=== PATIENT | female | born 1960 | race Caucasian/White ===

== ENCOUNTER 2018-07-30 14:30 | Emergency (ER) | payer MEDICAID, OTHER ==
[~2018-07-30] VITALS: Ht 157.5 cm; Wt 48.0 kg
[~2018-07-30 14:30] MED LIST: CANE-100; HYDR-4383 PO; NAPR-1154 PO
[2018-07-30 15:09] VITALS: BP 153/87
[2018-07-30] MEDS ORDERED: CEPH-572 PO (16:19)
== END 2018-07-30 20:51 | disposition home or self-care (01) ==
LOC: ER 14:30
DX: L03.012 Cellulitis of left finger (principal); L03.011 Cellulitis of right finger; R23.8 Other skin changes; K21.9 Gastro-esophageal reflux disease without esophagitis; Z79.899 Other long term (current) drug therapy
CPT/HCPCS: 99283

== ENCOUNTER 2019-10-01 10:54 | Emergency (ER) | payer MEDICAID, OTHER ==
[~2019-10-01] VITALS: Ht 157.5 cm; Wt 56.1 kg
[2019-10-01 11:08] VITALS: BP 171/94
[2019-10-01 12:35] LABS: CLARITY,URINE CLEAR (Clear); COLOR,URINE YELLOW (Yellow); GLUCOSE, URINE NEGATIVE (Neg); KETONES,URINE NEGATIVE (Neg); LEUKOCYTE ESTERASE ,URINE TRACE (Neg); NITRITES, URINE NEGATIVE (Neg); OCCULT BLOOD,URINE SMALL (Neg); PROTEIN,URINE NEGATIVE (Neg)
[2019-10-01 12:36] LABS: UA COLLECTION TYPE CLN CATCH MIDSTREAM
[2019-10-01 12:47] LABS: SQUAMOUS EPITHELIAL CELL,UR MODERATE /LPF (FEW)
[2019-10-01 12:49] LABS: BACTERIA,URINE 2+ /HPF (Neg); RBC,URINE 0-2 /HPF (0-2); WBC CLUMPS,URINE FEW /HPF (NEGATIVE)
[2019-10-01 12:59] LABS: URINE AMPHETAMINE SCREEN POSITIVE (Neg); URINE BARBITUATE SCREEN NEGATIVE (Neg); URINE BENZODIAZEPINES SCREEN NEGATIVE (Neg); URINE CANNABINOID SCREEN POSITIVE (Neg); URINE COCAINE SCREEN NEGATIVE (Neg); URINE METHADONE SCREEN NEGATIVE (Neg); URINE OPIATE SCREEN NEGATIVE (Neg); URINE PHENCYCLIDINE SCREEN NEGATIVE (Neg)
[2019-10-01] MEDS ORDERED: CEPH250T PO (13:27)
== END 2019-10-01 13:31 | disposition home or self-care (01) ==
LOC: ER 10:55
DX: N39.0 Urinary tract infection, site not specified (principal); F15.10 Other stimulant abuse, uncomplicated; K21.9 Gastro-esophageal reflux disease without esophagitis; Z59.0 Homelessness
CPT/HCPCS: 36415; 80305; 80320; 81001; 99283

== ENCOUNTER 2022-12-12 17:01 | Emergency (ER) | payer MEDICAID ==
[~2022-12-12] VITALS: Ht 157.5 cm; Wt 62.0 kg
[2022-12-12] MEDS ORDERED: ondansetron/PF 4mg/2ml inj IV ONE (17:15)
[2022-12-12] MEDS ORDERED: normal saline 1000ML IV soln IVB ONE (17:15)
[2022-12-12] MEDS ORDERED: pantoprazole 40 MG vial IV ONE (17:15)
[2022-12-12] MEDS ORDERED: pantoprazole 40MG/NS 100ML BAG 100 ML IV ONE (17:25)
[2022-12-12 17:46] LABS: BASOPHILS % (AUTO) 0.4 % (0-1); EOSINOPHILS # (AUTO) 0.4 X10'3 (0-0.9); EOSINOPHILS % (AUTO) 3.9 % (0-6); HEMATOCRIT 40.5 % (35.0-45.0); HEMOGLOBIN 13.8 g/dl (12.0-16.0); LYMPHOCYTES # (AUTO) 1.8 X10'3 (1.1-4.8); LYMPHOCYTES % (AUTO) 17.8 % (21-51); MEAN CORPUSCULAR HEMOGLOBIN 31.8 PG (27.0-31.0); MEAN CORPUSCULAR HGB CONC 34.1 g/dL (33.0-36.5); MEAN CORPUSCULAR VOLUME 93.3 FL (78-98); MEAN PLATELET VOLUME 7.3 FL (7.4-10.4); MONOCYTES # (AUTO) 0.6 X10'3 (0-0.9); MONOCYTES % (AUTO) 5.9 % (2-12); NEUTROPHILS # (AUTO) 7.1 X10'3 (1.8-7.7); PLATELET COUNT 379 X10'3 (140-440); RED BLOOD COUNT 4.35 X10'6 (4.20-5.60); RED CELL DISTRIBUTION WIDTH 14.7 % (11.5-14.5); WHITE BLOOD COUNT 9.9 X10'3 (4.5-11.0)
[2022-12-12 18:11] LABS: ALANINE AMINOTRANSFERASE 24 U/L (12-78); ALBUMIN 3.7 G/DL (3.4-5.0); ALBUMIN/GLOBULIN RATIO 0.9 (1.1-1.5); ALKALINE PHOSPHATASE 115 IU/L (46-116); ANION GAP 13 (8-16); ASPARTATE AMINO TRANSFERASE 24 U/L (10-37); BILIRUBIN,TOTAL 0.4 MG/DL (0.1-1.0); BLOOD UREA NITROGEN 27 MG/DL (7-18); BUN/CREATININE RATIO 31.4 (10.0-20.0); CALCIUM 8.7 MG/DL (8.5-10.1); CHLORIDE 110 MMOL/L (99-107); CREATININE 0.86 MG/DL (0.40-0.90); GLUCOSE 147 MG/DL (70-104); LIPASE < 50 U/L (73-393); POTASSIUM 3.5 MMOL/L (3.5-5.1); SODIUM 146 MMOL/L (135-145); TOTAL CARBON DIOXIDE 23.5 MMOL/L (24-32); TOTAL PROTEIN 7.7 G/DL (6.4-8.2); eGFR 67 ML/MIN
[2022-12-12 18:12] LABS: ETHANOL < 0.010 GM/DL (0.0-0.010)
[2022-12-12 19:37] LABS: CLARITY,URINE SLIGHTLY CLOUDY (Clear); COLOR,URINE YELLOW (Yellow); GLUCOSE, URINE NEGATIVE (Neg); KETONES,URINE TRACE mg/dl (Neg); LEUKOCYTE ESTERASE ,URINE NEGATIVE (Neg); NITRITES, URINE NEGATIVE (Neg); OCCULT BLOOD,URINE TRACE-INTACT (Neg); PROTEIN,URINE TRACE mg/dl (Neg); UROBILINOGEN,URINE 0.2 E.U/dL (0.2-1.0)
[2022-12-12 19:41] LABS: UA COLLECTION TYPE STRAIGHT CATH
[2022-12-12 19:44] LABS: BACTERIA,URINE FEW /HPF (Neg)
[2022-12-12 19:45] LABS: SQUAMOUS EPITHELIAL CELL,UR FEW /LPF (FEW)
[2022-12-12 19:52] LABS: URINE AMPHETAMINE SCREEN POSITIVE (Neg); URINE BARBITUATE SCREEN NEGATIVE (Neg); URINE BENZODIAZEPINES SCREEN NEGATIVE (Neg); URINE CANNABINOID SCREEN NEGATIVE (Neg); URINE COCAINE SCREEN NEGATIVE (Neg); URINE METHADONE SCREEN NEGATIVE (Neg); URINE OPIATE SCREEN NEGATIVE (Neg); URINE PHENCYCLIDINE SCREEN NEGATIVE (Neg)
[2022-12-12 21:21] VITALS: BP 160/88
== END 2022-12-12 21:47 | disposition home or self-care (01) ==
LOC: ER 17:01
DX: T40.2X1A Poisoning by other opioids, accidental (unintentional), initial encounter (principal); R11.2 Nausea with vomiting, unspecified; Y92.89 Other specified places as the place of occurrence of the external cause; K21.9 Gastro-esophageal reflux disease without esophagitis; F17.200 Nicotine dependence, unspecified, uncomplicated; Z79.899 Other long term (current) drug therapy
CPT/HCPCS: 36415; 71045; 80053; 80305; 80320; 81001; 83690; 85025; 87088; 93005; 96365; 96375; 99285; C9113; J2405; J7030; A4353

== ENCOUNTER 2023-10-13 09:27 | Emergency (ER) | payer MEDICAID ==
[~2023-10-13] VITALS: Ht 157.5 cm; Wt 73.0 kg
[2023-10-13 09:28] VITALS: BP 178/93; PULSE 113; RESP 16; TEMP 98.8; O2SAT 98
[2023-10-13] MEDS ORDERED: DOXY-1 PO (10:29)
[2023-10-13] MEDS ORDERED: NAPR-56 PO (10:29)
== END 2023-10-13 10:36 | disposition home or self-care (01) ==
LOC: ER 09:28
DX: K04.7 Periapical abscess without sinus (principal); K21.9 Gastro-esophageal reflux disease without esophagitis; M19.90 Unspecified osteoarthritis, unspecified site; F15.90 Other stimulant use, unspecified, uncomplicated; Z88.5 Allergy status to narcotic agent; Z79.899 Other long term (current) drug therapy
CPT/HCPCS: 99283

== ENCOUNTER 2024-05-23 02:31 | Emergency (ER) | payer MEDICAID ==
[~2024-05-23] VITALS: Ht 157.5 cm; Wt 88.0 kg
[2024-05-23 02:33] VITALS: TEMP 97.4
[2024-05-23] MEDS ORDERED: HYDR-3965 PO (03:20)
[2024-05-23] MEDS: ondansetron/PF 4mg/2ml inj IV ONE (03:33)
[2024-05-23] MEDS: ketorolac trometh 15mg/ml vial 15 MG/ML ML IV ONE (03:34)
[2024-05-23] MEDS: morphine 4 MG/ML inj SYRINge IV ONE (03:34)
[2024-05-23 04:23] VITALS: BP 143/80; PULSE 102; RESP 18; O2SAT 94
== END 2024-05-23 04:24 | disposition home or self-care (01) ==
LOC: ER 02:32
DX: M54.2 Cervicalgia (principal); K21.9 Gastro-esophageal reflux disease without esophagitis; M19.90 Unspecified osteoarthritis, unspecified site; F15.90 Other stimulant use, unspecified, uncomplicated
CPT/HCPCS: 93005; 96374; 96375; 99284; J1885; J2270; J2405

== ENCOUNTER 2024-08-04 15:24 | Emergency (ER) | payer MEDICAID ==
[~2024-08-04] VITALS: Ht 157.5 cm; Wt 84.1 kg
[2024-08-04 16:10] VITALS: BP_SYST 151
[2024-08-04] MEDS: dexamethasone sod phosphate 10mg/ml inj IM STA (19:36)
[2024-08-04] MEDS: ketorolac trometh 30MG/ML vial 30 MG/ML VIAL IM ONE (19:37)
[2024-08-04] MEDS ORDERED: PRED20TA PO (20:04)
[2024-08-04] MEDS ORDERED: PROM118S5 PO (20:05)
[2024-08-04] MEDS ORDERED: ALBU8HFA INH (20:05)
[2024-08-04 20:19] VITALS: BP_DIAS 148; PULSE 99; RESP 18; TEMP 98.6; O2SAT 85
== END 2024-08-04 20:20 | disposition home or self-care (01) ==
LOC: ER 15:25
DX: B34.9 Viral infection, unspecified (principal); Z20.822 Contact with and (suspected) exposure to COVID-19; K21.9 Gastro-esophageal reflux disease without esophagitis; M19.90 Unspecified osteoarthritis, unspecified site; F17.210 Nicotine dependence, cigarettes, uncomplicated; Z79.899 Other long term (current) drug therapy
CPT/HCPCS: 36415; 71045; 87502; 87503; 87811; 96372; 99284; J1100; J1885

== ENCOUNTER 2024-11-25 22:48 | Emergency (ER) | payer MEDICAID ==
[~2024-11-25] VITALS: Ht 157.5 cm; Wt 85.0 kg
[2024-11-25 23:10] LABS: BASOPHILS % (AUTO) 0.3 % (0-1); EOSINOPHILS # (AUTO) 0.1 X10'3 (0-0.9); EOSINOPHILS % (AUTO) 0.6 % (0-6); HEMATOCRIT 41.2 % (35.0-45.0); HEMOGLOBIN 14.2 g/dl (12.0-16.0); LYMPHOCYTES # (AUTO) 1.5 X10'3 (1.1-4.8); LYMPHOCYTES % (AUTO) 16.6 % (21-51); MEAN CORPUSCULAR HEMOGLOBIN 31.1 PG (27.0-31.0); MEAN CORPUSCULAR HGB CONC 34.5 g/dL (33.0-36.5); MEAN PLATELET VOLUME 7.3 FL (7.4-10.4); MONOCYTES # (AUTO) 0.6 X10'3 (0-0.9); MONOCYTES % (AUTO) 6.5 % (2-12); NEUTROPHILS # (AUTO) 6.9 X10'3 (1.8-7.7); PLATELET COUNT 358 X10'3 (140-440); RED BLOOD COUNT 4.57 X10'6 (4.20-5.60); RED CELL DISTRIBUTION WIDTH 14.1 % (11.5-14.5)
--- NOTE | 2024-11-25 23:23 | Physician Documentation ---
History of Present Illness ~ Chief Complaint: Abdominal Pain Stated Complaint: ABD PAIN Time Seen by MD: 23:00 Primary Medical Doctor: RIDDHI Source: patient Mode of Arrival: EMS Exam Limitations: no limitations HPI Chief Complaint: Lower abdominal pain Caveat: None Independent Historians: Paramedics History of Present Illness: Patient is a 64-year-old woman who comes in complaining of lower abdominal pain that began earlier today. Pain is severe. Patient is unable to describe the pain. Patient states that it feels like she needs to urinate but states that she has urinated. Patient denies any burning with urination. Patient denies any fever. Patient denies any nausea vomiting or diarrhea. Patient states that she has never had this pain before. Pain is constant. No alleviating or exacerbating factors. Review of systems: All systems were reviewed and are negative except for what is indicated in the history of present illness. Past Medical History: Arthritis, GERD Past Surgical History: Noncontributory Social History: History of methamphetamine use Medications: Reviewed as documented Nursing Notes Allergies: Reviewed as documented in Nursing Notes Medication Reconciliation Allergies: Coded Allergies: No Known Allergies (Unverified , 11/25/24) Scheduled Hydrocodone/Acetaminophen ([place] 5-325 Tablet), 1 TAB PO Q4HPRN Scheduled PRN Hydrocodone Bit/Acetaminophen (Hydrocodon-Acetaminophn 10-325 tablet), 1 TAB PO TID PRN PRN for pain Naproxen (Naprosyn), 1 TAB PO Q12H PRN for pain Durable Medical Equipment Cane (Cane), EACH, (DME) Past Medical History Past Medical History: GERD, Arthritis Past Surgical History: noncontributory Patient History: (CVA) Cerebrovascular accident FATHER, , Cause: Lymphoma, Not a twin ("AROUND 80") (Cancer) Malignant carcinoid tumor FATHER, , Cause: Lymphoma, Not a twin, Onset:60 years & older ([place]HOMA) MOTHER, , Cause: Pneumonia, Not a twin, Onset:60 years & older (STOMACH CANCER) Alcohol Use: None Drug Use: methamphetamine Lives with: Alone Lives In: Home Occupation: employed Physical Exam Vital Signs: Temperature: 97.9, Heart Rate: 108, Respiratory Rate: 16, BP: 17 1/112, Pulse Oximetry: 94, Weight: 85.000 Oxygen Flow Rate: 0 Progress Results/Orders Results/Orders Orders - ARCHIE,CAITLIN R MD Urinalysis, Cult If Indicated (11/25/24 22:50) Hcg, Ur Ql (11/25/24 22:50) Morphine 4mg/Ml Inj. (Morphine Inj.) (11/25/24 23:20) Ct Abdomen Pelvis (11/26/24 00:05) Completed Orders - CAITLIN ALMANZA MD Cbc/Diff (11/25/24 22:50) BMP (11/25/24 22:50) Lipase (11/25/24 22:50) CMP (11/25/24 22:50) Ondansetron Inj. (Zofran 4mg/2ml Vial) (11/25/24 23:20) Normal Saline 1000ml (Sodium Chloride 10 (11/25/24 23:20) Iohexol 350mg/Ml 100ml (Omnipaque 350mg/ (11/25/24 23:58) Ct Abdomen Pelvis (11/26/24 00:05) Hydrocodone/Apap 10/325 ([place] 10/325mg (11/26/24 01:05) Ketorolac Trometh 15mg/Ml Vial (Toradol (11/26/24 01:05) Medications Received in ER Medications (Trade) Dose Ordered Sig/Machelle Route PRN Reason Start Time Stop Time Status Last Admin Dose Admin (Zofran 4mg/2ml vial) 4 mg ONCE ONCE IV 11/25/24 23:20 11/25/24 23:21 DC 11/25/24 23:56 4 MG (morphine inj.) 4 mg Q20M PRN IV moderate to severe pain 4-10 11/25/24 23:20 11/25/24 23:56 4 MG (sodium chloride 1000ml IV soln) 1,000 ml ONCE ONCE IVB 11/25/24 23:20 11/25/24 23:21 DC 11/25/24 23:55 1,000 ML ([place] 10/325mg tab) 1 tab ONCE ONCE PO 11/26/24 01:05 11/26/24 01:07 DC 11/26/24 01:23 1 TAB (Toradol injection) 15 mg ONCE ONCE IV 11/26/24 01:05 11/26/24 01:06 DC 11/26/24 01:24 15 MG Vital Signs 11/25/24 11/25/24 11/25/24 11/26/24 22:51 22:56 23:56 00:25 Temp 97.9 Pulse 108 102 Resp 16 16 18 B/P (MAP) 171/112 178/112 (134) Pulse Ox 94 93 O2 Flow Rate 0 0 11/26/24 11/26/24 11/26/24 11/26/24 00:28 01:23 01:24 02:09 Pulse 100 Resp 17 16 16 18 B/P (MAP) 142/86 (104) Pulse Ox 98 O2 Flow Rate 0 Laboratory Tests Test 11/25/24 22:59 White Blood Count 9.0 Red Blood Count 4.57 Hemoglobin 14.2 Hematocrit 41.2 Mean Corpuscular Volume 90.0 Mean Corpuscular Hemoglobin 31.1 H Mean Corpuscular Hemoglobin Concent 34.5 Red Cell Distribution Width 14.1 Platelet Count 358 Mean Platelet Volume 7.3 L Neutrophils (%) (Auto) 76.0 H Lymphocytes (%) (Auto) 16.6 L Monocytes (%) (Auto) 6.5 Eosinophils (%) (Auto) 0.6 Basophils (%) (Auto) 0.3 Neutrophils # (Auto) 6.9 Lymphocytes # (Auto) 1.5 Monocytes # (Auto) 0.6 Eosinophils # (Auto) 0.1 Basophils # (Auto) 0.0 CBC Comment Sodium Level 143 Potassium Level 3.8 Chloride Level 108 H Carbon Dioxide Level 24.7 Anion Gap 10 Blood Urea Nitrogen 16 Creatinine 0.87 Estimated GFR/1.73 m2 66 BUN/Creatinine Ratio 18.4 Glucose Level 112 H Calcium Level 8.5 Total Bilirubin 0.3 Aspartate Amino Transf (AST/SGOT) 22 Alanine Aminotransferase (ALT/SGPT) 19 Alkaline Phosphatase 118 H Total Protein 7.9 Albumin 3.4 Globulin 4.5 H Albumin/Globulin Ratio 0.8 L Lipase 23 Chemistry Comments Medical Decision Making Findings Differential diagnosis includes but is not limited to: Diverticulitis, acute appendicitis, urinary retention, cecal volvulus, ischemic bowel, colitis Abdomen and pelvis CT scan with IV contrast, indication: Abdominal pain Impression: 1. Moderate right hydroureteronephrosis secondary to a partially obstructing distal ureteral calculus measuring 3 mm located at the ureterovesicular junction. Additional nonobstructing right interpolar pelvocaliceal calculus measures 1.2 cm. 2. Hiatal hernia. 3. Diverticulosis coli without CT evidence of acute diverticulitis. Laboratory data independent interpretation: CBC: Normal, 76% neutrophils, 16.6% lymphocytes CMP: UNREMARKABLE Urinalysis: NEVER OBTAINED SPECIMEN Emergency department course/medical decision-making: Patient presents with severe lower abdominal pain. Patient's symptoms appear to be secondary to a distal right ureteral stone measuring 3 mm. Patient was given morphine 3 mg IV, Toradol 15 mg IV and 1 L of normal saline and Zofran 4 mg IV. Patient is feeling much better. Patient is given [place] 10 mg prior to disch arge. Patient is given a prescription for Flomax, Zofran and [place]. Test results and treatment plan and all of the above reviewed with the patient. She is stable for discharge. Departure Impression: Primary Impression: Ureteral calculus, right Additional Impressions: Ureteral stone with hydronephrosis Ureteral colic Condition: Improved Discharge Instructions: Kidney Stones, [id number], Renal Colic, [id number] Additional Instructions: TAKE ADVIL FOR PAIN ALONG WITH THE [place] PRESCRIBED IF NEEDED FOR SEVERE PAIN. RETURN IF YOUR SYMPTOMS WORSEN. YOU SHOULD PASSED THIS SMALL STONE GIVEN ITS SIZE OF ONLY 3 MM. Referrals: NO PRIMARY CARE PROVIDER (PCP) Prescriptions ONDANSETRON ODT 4mg tablet (ONDANSETRON ODT) 4 Mg Tab.rapdis 1 TAB PO Q6H PRN PRN for nausea/vomiting for 4 Days, #16 TAB 0 Refills Prov: CAITLIN ALMANZA MD 11/26/24 Tamsulosin Hcl* (Flomax*) 0.4 Mg Cap.sr.24h 1 CAP PO DAILY, #10 CAP Prov: CAITLIN ALMANZA MD 11/26/24 Hydrocodone Bit/Acetaminophen (Hydrocodon-Acetaminophn 10-325 tablet) 10mg-325mg Tablet 1 TAB PO TID PRN PRN for pain for 5 Days, #15 TAB Prov: VIKI COTO 11/26/24 Education Educated: Patient Educated regarding: diagnosis, treatment, need for follow up Signature Scribe Signature: No scribe Attestation: No scribe CAITLIN ALMANZA MD Nov 25, 2024 23:23
[2024-11-25 23:25] LABS: ALANINE AMINOTRANSFERASE 19 U/L (12-78); ALBUMIN 3.4 G/DL (3.4-5.0); ALKALINE PHOSPHATASE 118 IU/L (46-116); ANION GAP 10 (8-16); ASPARTATE AMINO TRANSFERASE 22 U/L (10-37); BILIRUBIN,TOTAL 0.3 MG/DL (0.1-1.0); BLOOD UREA NITROGEN 16 MG/DL (7-18); BUN/CREATININE RATIO 18.4 (10.0-20.0); CALCIUM 8.5 MG/DL (8.5-10.1); CHLORIDE 108 MMOL/L (99-107); CREATININE 0.87 MG/DL (0.40-0.90); GLUCOSE 112 MG/DL (70-104); LIPASE 23 U/L (16-77); POTASSIUM 3.8 MMOL/L (3.5-5.1); SODIUM 143 MMOL/L (135-145); TOTAL CARBON DIOXIDE 24.7 MMOL/L (24-32); eCRCL 52 ML/MIN; eGFR 66 ML/MIN
[2024-11-25 23:26] LABS: ALBUMIN/GLOBULIN RATIO 0.8 (1.1-1.5); TOTAL PROTEIN 7.9 G/DL (6.4-8.2)
[2024-11-25] MEDS: normal saline 1000ML IV soln IVB ONE (23:55)
[2024-11-25] MEDS: morphine 4 MG/ML inj SYRINge IV PRN (23:56)
[2024-11-25] MEDS: ondansetron/PF 4mg/2ml inj IV ONE (23:56)
[2024-11-25] MEDS ORDERED: iohexol 350MG/ML 100ml bottle IV ONE (23:58)
--- NOTE | 2024-11-26 00:48 | RADIOLOGY REPORT ---
Exam: CT CT ABDOMEN PELVIS W/ IV CONTRAST History: Abdominal Pain COMPARISON: None Technique: Multidetector spiral CT of the abdomen and pelvis was performed from lung bases to pubic s ymphysis. Intravenous contrast was administered during this examination. Portal venous imaging was o btained. Axial, coronal and sagittal multiplanar reformats were performed by the technologist on a [employer] workstation. Radiation Dose : 1. Abdomen/Pelvis: CTDIvol 15.95 mGy, DLP 821.51 mGy*cm. CONTRAST: Type of contrast: Omnipaque 350 Contrast injected: 100 ml Findings: Lung Bases: No acute or significant lung base finding. Normal heart size. No pleural or pericardial effusion. Liver: The liver is normal in size. No focal lesions. Normal hepatic vascular enhancement. Gallbladder and Biliary Tree: Cholelithiasis. Spleen: Unremarkable Pancreas: The pancreas is normal in appearance without focal lesions or abnormal enhancement. Adrenal Glands: Unremarkable Kidneys: Moderate right hydronephrosis and ureteral dilatation secondary to a partially obstructing distal ureteral calculus measuring 3 mm at the level of the ureterovesicular junction. Nonobstructin g right interpolar pelvocaliceal calculus measures 1.2 cm. No left nephrolithiasis or hydronephrosis. Bilateral renal cortical cysts measure up to 1.5 cm on the right and 1.0 cm on the left. Bladder: Unremarkable Bowel: Moderate hiatal hernia. The stomach is grossly normal in appearance. Small bowel and colon are normal in caliber and distribution. Extensive diverticula throughout the sigmoid colon without CT ev idence of acute diverticulitis. The appendix is not visualized; however, no secondary findings of acu te appendicitis identified. Ascites: Absent Lymphadenopathy: No mesenteric, retroperitoneal or periportal lymphadenopathy. Abdominal Wall and Mesentery: Unremarkable. Vasculature: The visualized abdominal aorta is normal in size and caliber. Abdominal and pelvic vess els demonstrate normal enhancement. Pelvic Organs: Unremarkable Musculoskeletal: No aggressive focal bony lesions, acute fractures or dislocation. 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 IMPRESSION: 1. Moderate right hydroureteronephrosis secondary to a partially obstructing distal ureteral calculus measuring 3 mm located at the ureterovesicular junction. Additional nonobstructing right interpolar pelvocaliceal calculus measures 1.2 cm. 2. Hiatal hernia. 3. Diverticulosis coli without CT evidence of acute diverticulitis. Radiation optimization: All CT scans at this facility use at least one of these dose optimization kamran hniques: automated exposure control mA and/or kV adjustment per patient size (includes targeted exam s where dose is matched to clinical indication) or iterative reconstruction.
[2024-11-26] MEDS: HYDROcodone/acetaminophen 10/325mg tab PO ONE (01:23)
[2024-11-26] MEDS: ketorolac trometh 15mg/ml vial 15 MG/ML ML IV ONE (01:24)
[2024-11-26] MEDS ORDERED: HYDR-3972 PO (01:54)
[2024-11-26] MEDS ORDERED: ONDA-243 PO (02:18)
[2024-11-26] MEDS ORDERED: TAMS-55 PO (02:18)
[2024-11-26 03:06] VITALS: BP 124/74; PULSE 102; RESP 16; TEMP 97.9; O2SAT 96
== END 2024-11-26 03:15 | disposition home or self-care (01) ==
LOC: ER 22:49
DX: N13.2 Hydronephrosis with renal and ureteral calculous obstruction (principal); M19.90 Unspecified osteoarthritis, unspecified site; K21.9 Gastro-esophageal reflux disease without esophagitis; F15.90 Other stimulant use, unspecified, uncomplicated; Z79.899 Other long term (current) drug therapy; Z60.2 Problems related to living alone
CPT/HCPCS: 36415; 74177; 80053; 83690; 85025; 96361; 96374; 96375; 99285; J1885; J2270; J2405; J7030; Q9967

== ENCOUNTER 2025-05-24 15:15 | Emergency (ER) | payer MEDICAID ==
[~2025-05-24] VITALS: Ht 157.5 cm; Wt 72.7 kg
[~2025-05-24 15:15] MED LIST changes: +ONDA-243 PO
[2025-05-24 15:24] VITALS: BP 161/90; TEMP 97.7
--- NOTE | 2025-05-24 16:17 | Physician Documentation ---
History of Present Illness ~ Chief Complaint: Mouth Pain Stated Complaint: FACE PAIN Time Seen by MD: 16:01 Primary Medical Doctor: RIDDHI [facility] 65-year-old female presents to the ED with the acute onset right facial swelling and mouth pain fevers or nausea vomiting she does have a long history of tooth problems in his not been to the dentist for an extended period of time. Denies any point tenderness Day of Onset: May 24, 2025 Medication Reconciliation Allergies: Coded Allergies: No Known Allergies (Unverified , 05/24/25) Scheduled Clindamycin HCl (Cleocin HCl), 1 CAP PO Q8H Hydrocodone/Acetaminophen ([place] 5-325 Tablet), 1 TAB PO Q4HPRN Scheduled PRN Naproxen (Naprosyn), 1 TAB PO Q12H PRN for pain ONDANSETRON ODT 4mg tablet (Ondansetron Odt), 1 TAB PO Q6H PRN PRN for nausea/vomiting Durable Medical Equipment Cane (Cane), EACH, (DME) Past Medical History Past Medical History: GERD, Arthritis Past Surgical History: noncontributory Patient History: (CVA) Cerebrovascular accident FATHER, , Cause: Lymphoma, Not a twin ("AROUND 80") (Cancer) Malignant carcinoid tumor FATHER, , Cause: Lymphoma, Not a twin, Onset:60 years & older ([place]) MOTHER, , Cause: Pneumonia, Not a twin, Onset:60 years & older (STOMACH CANCER) Alcohol Use: None Drug Use: methamphetamine Lives with: Alone Lives In: Home Occupation: employed Review of Systems All Other Systems at this time: Reviewed and Negative ROS As stated above in the HPI, otherwise all systems are reviewed and negative. Physical Exam Vital Signs: Temperature: 97.7, Heart Rate: 100, Respiratory Rate: 18, BP: 161/90, Pulse Oximetry: 97, Weight: 72.730 Oxygen Flow Rate: 0 Physical Exam General: Alert, no apparent distress. HEENT: PERRL, EOMI, no injection, moist mucous membranes. Right-sided facial swelling no submandibular poor dentition throughout the oral cavity no evidence of abscess purulent region Neck: Full range of motion. Respiratory: Lungs clear, no respiratory distress. Psychiatric: Normal mood and affect. Skin: Normal color, warm and dry. No edema, no ecchymosis. Progress Results/Orders Results/Orders Vital Signs 05/24/25 05/24/25 15:24 16:57 Temp 97.7 Pulse 100 65 Resp 18 18 B/P (MAP) 161/90 Pulse Ox 97 98 O2 Flow Rate 0 Medical Decision Making Additional information obtaine: old records Findings Treating empirically for a tooth infection Ear Diff. Dx: Considerations: Unlikely: Abrasion, Cerumen impaction, Foreign body, Otitis externa, Barotrauma, Otitis media, Perforation, Referred pain- dental, Referred pain-pharyngitis, Referred pain-sinusitis, Referred pain-TMJ syn., Tympanic Membrane Injury, Other Eye Diff. Dx: Considerations: Unlikely: [place]az[place], Conjuctivits-allergic, Conjuctivitis-bacterial, Conjuctivits-chlamydial, Conjuctivitis-viral, Corneal abrasion, Corneal laceration, Corneal ulceration, Foreign body-conjuctiva, Foreign body-corneal, Foreign body-intraocular, Foreign body-lid, Glaucoma, Globe rupture, Hordeolum, Iritis, Orbital cellulitis, Periobital cellulitis, Retinal artery occulsion, Retinal vein occlusion, Rust ring, Subconjunctival hem, Ultraviolet keratitis, Uveitis, Vitreous hemorrhage, Other Nose Diff. Dx: Considerations: Unlikely: Abrasion, Anterior nasal bleed, Avulsion, Contusion, Coagulopathy, Fracture-nasal bone, Fracture-septum, Hypertension, Laceration, Other, Posterior nasal bleed, Retained foreign body, Septal hematoma Tooth Diff. Dx: Considerations: Include: Alveolar fracture, Aveolar osteitis, ANUG, Facial cellulitis, Periapical abscess, Periodontal abscess, Post- extraction bleeding, Pulpitis, Trigeminal neuralgia, Tooth-avulsion, Tooth- eruption, Tooth-fracture, Tooth-subluxation, Other Throat Diff Dx: Considerations: Unlikely: AIDS, Epiglottitis, Esophageal candidiasis, Hand foot mouth disease, Herpangina, Herpetic stomatitis, Herpes simplex, Infection mononucleosis, Immunodeficiency, Fran's angina, Peritonsillar abscess, Peritonsillar cellulitis, Pharyngitis-diphtheria, Pharyngitis-strepococcal, Pharyngitis-viral, Thrush, URI, Other Departure Disposition: 01 HOME / SELF CARE / HOMELESS Impression: Primary Impression: Dental abscess Condition: Improved Discharge Instructions: Dental Abscess, [id number] Referrals: NO PRIMARY CARE PROVIDER (PCP) Prescriptions Clindamycin HCl (Cleocin HCl) 150 Mg Capsule 1 CAP PO Q8H for 10 Days, #30 CAP Prov: KHUSHI CHAVIS RAYON WINDER 05/24/25 Education Educated: Patient Educated regarding: diagnosis Signature Scribe Signature: g Attestation: Scribed for Khushi Chavis Hairspring Adjuster by Khushi Ghotra NP . 05/24/25 16:21 KHUSHI CHAVIS RAYON WINDER May 24, 2025 16:17
[2025-05-24] MEDS ORDERED: CLIN150C2 PO (16:21)
[2025-05-24 16:57] VITALS: PULSE 65; RESP 18; O2SAT 98
== END 2025-05-24 16:59 | disposition home or self-care (01) ==
LOC: ER 15:15
DX: K04.7 Periapical abscess without sinus (principal); F15.90 Other stimulant use, unspecified, uncomplicated; K21.9 Gastro-esophageal reflux disease without esophagitis; M19.90 Unspecified osteoarthritis, unspecified site; Z79.899 Other long term (current) drug therapy; Z60.2 Problems related to living alone
CPT/HCPCS: 99283